=== PATIENT | female | born 1965 | race Two or more races ===

== ENCOUNTER 2024-02-03 10:18 | Emergency (ER) | payer OTHER ==
[~2024-02-03] VITALS: Ht 162.6 cm; Wt 61.0 kg
--- NOTE | 2024-02-03 10:32 | ECG ---
[facility] Test Date: 2024-02-03 Test Time: 10:23:41 Pat Name: SEVERIANO NASCIMENTO Department: er Room: Gender: F [place] Attacher: otilio : 1965 Requested By: MINESH FRIAS Order Number: [id number] Reading MD: Raymundo Caceres Measurements Intervals [place] Rate: 77 P: 1 CT: 171 QRS: 15 QRSD: 89 T: 31 QT: 406 QTc: 460 Interpretive Statements Sinus rhythm Low voltage, precordial leads RSR' in V1 or V2, right VCD or RVH Electronically Signed On 02-03-2024 13:13:29 PST by Raymundo Caceres Please click the below link to view image of tracing.
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
[2024-02-03] MEDS ORDERED: IBU600T PO (10:56)
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
[2024-02-03 11:50] VITALS: PULSE 77; RESP 16; O2SAT 98
[2024-02-03 11:51] VITALS: BP 135/69; PULSE 77; RESP 16; TEMP 97.9; O2SAT 98
== END 2024-02-03 11:55 | disposition home or self-care (01) ==
LOC: EDBD 10:18 → ER 10:18
DX: S16.1XXA Strain of muscle, fascia and tendon at neck level, initial encounter (principal); F17.210 Nicotine dependence, cigarettes, uncomplicated; Z87.442 Personal history of urinary calculi; Z98.890 Other specified postprocedural states; Z79.899 Other long term (current) drug therapy; Z98.51 Tubal ligation status; V89.2XXA Person injured in unspecified motor-vehicle accident, traffic, initial encounter; Y93.89 Activity, other specified; Y92.488 Other paved roadways as the place of occurrence of the external cause; Y99.8 Other external cause status
CPT/HCPCS: 71045; 72040; 93005